=== PATIENT | male | born 1945 | race Caucasian/White ===

== ENCOUNTER 2017-08-22 15:33 | Outpatient (CLI) | payer MEDICARE, OTHER ==
[2013-03-19 10:46] VITALS: BP 148/86
[2017-08-22 16:10] LABS: eGFR (African) > 60; eGFR (Non-African) > 60
== END 2017-08-22 15:34 ==
LOC: LAB 15:33
PROVIDERS: ATTEND Family Medicine
DX: I10 Essential (primary) hypertension (principal); R73.9 Hyperglycemia, unspecified; Z12.5 Encounter for screening for malignant neoplasm of prostate
CPT/HCPCS: 36415; 80053; 83036; 84153; G0103

== ENCOUNTER 2018-05-15 08:00 | Outpatient (CLI) | payer MEDICARE, OTHER ==
[2013-03-19 10:46] VITALS: BP 148/86
[2018-05-15 10:58] LABS: eGFR (African) > 60; eGFR (Non-African) > 60
== END 2018-05-15 08:02 ==
LOC: LAB 08:00
PROVIDERS: ATTEND Family Medicine
DX: E78.5 Hyperlipidemia, unspecified (principal); I10 Essential (primary) hypertension; N52.9 Male erectile dysfunction, unspecified
CPT/HCPCS: 36415; 80053; 80061; 84403